=== PATIENT | female | born 1950 | race Caucasian/White ===

== ENCOUNTER 2017-05-15 12:14 | Outpatient (CLI) | payer MEDICARE ==
--- NOTE | 2017-05-15 14:50 | RAD ---
CHEST PA AND LATERAL: History: 67-year-old female with history of dyspnea on exertion. Comparison: 04-11-17 FINDINGS: Minimal cardiomegaly. Mild bilateral vascular congestion without overt edema or pleural effusion. No confluent pneumonia. IMPRESSION: Cardiomegaly with some developing bilateral vascular congestion since 04-11-17. No overt edema or conf luent pneumonia or other acute process. POS: [facility]
--- NOTE | 2017-05-15 14:58 | ULT ---
BILATERAL LOWER EXTREMITY VENOUS VASCULAR DUPLEX STUDY INCLUDING COLOR AND SPECTRAL DOPPLER IMAGING: History: 67-year-old female with bilateral lower extremity swelling and edema for one month. Personal history of prior DVT on the left side. Comparison: 04-01-14 FINDINGS: Visualized greater saphenous, common femoral, superficial femoral, profunda femoral, popliteal, trifu rcation and posterior tibial vein regions are evaluated. On the right side there is phasic flow with normal compressibility and normal augmentation throughout the right lower extremity without evidence for deep venous thrombosis. On the left side there is some decrease compressibility and decreased augmentation but no evidence of occlusive, obstructing process. There is phasic flow down to the level of the popliteal vein. The le ft posterior tibial vein is somewhat poorly seen. There is flow in the trifurcation region and also i n the left popliteal vein. IMPRESSION: Evidence for decreased compressibility and augmentation from the region of the left common femoral ve in down to and including the left trifurcation region. Given that very similar changes were seen at t he time of the prior study and the fact that there is no evidence for obstructing thrombus I favor th marito changes to be old and may well represent some residual venous scarring or fibrosis. If the patient develops any new focal swelling or worsening pain. Another short term follow up study of the left lower extremity should be considered. POS: [facility]
== END 2017-05-15 12:15 | disposition home or self-care (01) ==
LOC: NAV ULT 12:14
PROVIDERS: ATTEND Internal Medicine Pulmonary Disease
DX: M79.89 Other specified soft tissue disorders (principal); R06.09 Other forms of dyspnea; I51.7 Cardiomegaly; R09.89 Other specified symptoms and signs involving the circulatory and respiratory systems; R93.8 Abnormal findings on diagnostic imaging of other specified body structures
CPT/HCPCS: 71046; 93970

== ENCOUNTER 2017-05-27 10:52 | Outpatient (CLI) | payer MEDICARE | END 2017-05-27 10:53 | disposition home or self-care (01) | LOC: NAV DTY OP 10:52 | PROVIDERS: ATTEND Family Medicine | DX: E11.9 Type 2 diabetes mellitus without complications (principal); R63.5 Abnormal weight gain; Z68.37 Body mass index [BMI] 37.0-37.9, adult | CPT/HCPCS: 97802 ==

== ENCOUNTER 2017-07-04 19:23 | Outpatient (CLI) | payer MEDICARE, MEDICAID ==
[2017-07-04 20:42] LABS: #Basophils 0.1 thou/uL (0.0-0.2); #Eosinphils 0.4 thou/uL (0.0-0.7); #Monocytes 0.6 thou/uL (0.11-0.59); #Neutrophils 5.4 thou/uL (1.40-6.50); %Basophils 1.2 % (0.0-1.0); %Eosinophils 4.5 % (0.0-10.0); %Lymphocytes 23.9 % (21.0-51.0); %Monocytes 6.6 % (0.0-10.0); %Neutrophils 63.7 % (42.0-75.0); Hemoglobin 13.4 g/dL (12.0-16.0); Mean Corpuscular HGB CONC 29.9 g/dL (32.0-36.0); Mean Corpuscular Hemoglobin 26.1 pg (27.0-31.0); Mean Corpuscular Volume 87.3 fl (81.0-99.0); Mean Platelet Volume 8.8 fL (7.4-10.4); Platelet Count 263 thou/uL (130-400); RBC Distribution Width 17.1 % (11.5-14.5); Red Blood Cell (RBC) Count 5.11 mill/uL (4.20-5.40); White Blood Cell (WBC) Count 8.4 thou/uL (4.8-10.8)
[2017-07-04 20:44] LABS: ALT (SGPT) 13 U/L (8-55); AST (SGOT) 17 U/L (5-34); Albumin 4.2 g/dL (3.4-4.8); Alkaline Phosphatase 94 U/L (40-150); Anion Gap 15 mmol/L (10-20); BUN (Urea Nitrogen) 15 mg/dL (9.8-20.1); Bilirubin, Total 0.2 mg/dL (0.2-1.2); Calc. Creatinine Clearance 0 mL/min (70-130); Calcium 9.7 mg/dL (7.8-10.44); Carbon Dioxide 28 mmol/L (23-31); Chloride 102 mmol/L (98-107); Estimated GFR-MDRD 73; Globulin 3.2 g/dL (2.4-3.5); Glucose 113 mg/dL (80-115); Potassium 4.2 mmol/L (3.5-5.1); Protein, Total 7.4 g/dL (6.0-8.3); Sodium 141 mmol/L (136-145)
== END 2017-07-04 19:24 | disposition home or self-care (01) ==
LOC: NAV LAB 19:23
PROVIDERS: ATTEND Family Medicine
DX: D50.0 Iron deficiency anemia secondary to blood loss (chronic) (principal); R63.0 Anorexia
CPT/HCPCS: 80053; 85025

== ENCOUNTER 2018-03-19 01:28 | Emergency (ER) | payer MEDICARE, MEDICAID ==
[2018-03-19] MEDS ORDERED: EPINEPHrine 1 MG/ML AMP ONE ×2 (01:35→05:43)
[2018-03-19] MEDS ORDERED: Norepinephrine 8 MG/0.9% NS 0 ML ONE ×2 (01:35→04:53)
[2018-03-19 01:52] LABS: INR-International Normal Ratio 1.2; Prothrombin Time 15.5 SEC (12.0-14.7)
[2018-03-19 02:00] LABS: Band 1 % (5-11); Eosinophils 3 % (0-10); Hemoglobin 12.3 g/dL (12.0-16.0); Hypochromia MODERATE=16-30 cells (100X) (0-5/hpf); Lymphocytes 44 % (21-51); MDiff Complete? YES; Mean Corpuscular HGB CONC 28.7 g/dL (32.0-36.0); Mean Corpuscular Hemoglobin 25.8 pg (27.0-31.0); Mean Corpuscular Volume 89.9 fL (78.0-98.0); Mean Platelet Volume 7.7 fL (7.4-10.4); Monocytes 6 % (0-10); Neutrophil 41 % (42-75); Nucleated RBC 1 % (0); PLT Morphology Comment Appears Adequate; Platelet Count 111 thou/uL (130-400); RBC Distribution Width 15.4 % (11.5-14.5); Reactive Lymphocytes 5 % (0-10); Red Blood Cell (RBC) Count 4.77 mill/uL (4.20-5.40); White Blood Cell (WBC) Count 13.3 thou/uL (4.8-10.8)
[2018-03-19 02:04] LABS: ALT (SGPT) 349 U/L (8-55); AST (SGOT) 391 U/L (5-34); Albumin 3.2 g/dL (3.4-4.8); Alkaline Phosphatase 112 U/L (40-150); Anion Gap 25 mmol/L (10-20); BUN (Urea Nitrogen) 17 mg/dL (9.8-20.1); Bilirubin, Total 0.2 mg/dL (0.2-1.2); Calc. Creatinine Clearance 0 mL/min (70-130); Calcium 8.8 mg/dL (7.8-10.44); Carbon Dioxide 16 mmol/L (23-31); Chloride 99 mmol/L (98-107); Estimated GFR-MDRD 38; Globulin 2.7 g/dL (2.4-3.5); Glucose 498 mg/dL (80-115); Potassium 3.2 mmol/L (3.5-5.1); Protein, Total 5.9 g/dL (6.0-8.3); Sodium 137 mmol/L (136-145)
[2018-03-19 02:19] LABS: CKMB 2.9 ng/mL (0-6.6)
[2018-03-19] MEDS ORDERED: Tenecteplase 50 MG - STEMI KIT ONE ×2 (02:27→04:52)
[2018-03-19 02:43] LABS: D-Dimer Test Greater than 20.00 *mcg/mL (0.27-0.43)
--- NOTE | 2018-03-19 08:38 | RAD ---
CHEST 1 VIEW: Date: 03/19/18 HISTORY: CPR in progress. COMPARISON: Chest radiograph dated 05/15/17. FINDINGS: The patient is intubated. Endotracheal tube tip in good position above the terrie 3.2 cm. No pneumoth orax. No large effusion. Mild atelectatic changes lung bases. A defibrillator pad projects over the r ight upper hemithorax. IMPRESSION: Satisfactory position of the endotracheal tube. POS: [facility]
== END 2018-03-19 02:55 | disposition short-term general hospital (02) ==
LOC: NAV ERS 01:28
DX: I46.9 Cardiac arrest, cause unspecified (principal); E11.9 Type 2 diabetes mellitus without complications; K21.9 Gastro-esophageal reflux disease without esophagitis; D50.9 Iron deficiency anemia, unspecified; E78.5 Hyperlipidemia, unspecified; I10 Essential (primary) hypertension; Z86.718 Personal history of other venous thrombosis and embolism; F32.9 Major depressive disorder, single episode, unspecified; Z79.84 Long term (current) use of oral hypoglycemic drugs; Z79.899 Other long term (current) drug therapy
CPT/HCPCS: 36415; 36680; 71045; 80053; 82553; 84484; 85025; 85379; 85610; 85730; 92950; J0171; J3101